=== PATIENT | male | born 1960 | race Caucasian/White ===

== ENCOUNTER 2022-11-14 11:29 | Emergency (ER) | payer BC ==
[2022-11-14 11:35] VITALS: BMI 36.0
[2022-11-14] MEDS ORDERED: IBUPROFEN 400 MG TABLET (FP) PO ONE ×2 (12:23→13:07)
[2022-11-14] MEDS ORDERED: ACETAMINOPHEN 325 MG TABLET (FP) PO ONE (12:23)
[2022-11-14] MEDS ORDERED: ACETAMINOPHEN 500 MG TABLET (FP) ONE (13:07)
[2022-11-14 13:50] VITALS: BP 159/89; PULSE 69; RESP 12; TEMP 98.3
== END 2022-11-14 13:52 | disposition home or self-care (01) ==
LOC: JERFT 11:29
DX: R07.81 Pleurodynia (principal); M79.641 Pain in right hand; W10.1XXA Fall (on)(from) sidewalk curb, initial encounter
CPT/HCPCS: 71046-TC-FY; 71101-TC-RT-FY; 73130-TC-RT-FY; 99284-25

== ENCOUNTER 2023-06-23 15:16 | Emergency (ER) | payer BC, OTHER ==
[2023-06-23 15:25] VITALS: BP 156/91; PULSE 76; RESP 18; TEMP 97.3; BMI 43.9
[2023-06-23] MEDS ORDERED: ACETAMINOPHEN INJECTION 100 ML IVPB ONE (16:58)
[2023-06-23] MEDS: ACETAMINOPHEN 1000 MG/100 ML BAG IVPB ONE (17:00)
[2023-06-23 17:07] LABS: BASO % 1.1 % (0-2.0); EOS % 1.6 % (0-4.5); HEMATOCRIT 40.1 % (35.4-49); HEMOGLOBIN 13.2 GM/dL (11.7-16.9); LYMPH % 43.3 % (8-40); MCH 29.4 pg (25.7-33.7); MCHC 32.8 g/dl (32.0-35.9); MEAN CELL VOLUME 89.6 fl (80-96); MEAN PLT VOLUME 7.2 fl (7.5-11.1); MONO % 8.1 % (3.8-10.2); NEUT % 45.9 % (42.8-82.8); PLATELET COUNT 346 10^3/uL (134-434); RBC 4.48 M/mm3 (4.00-5.60); RDW 14.5 % (11.9-15.9); WHITE BLOOD COUNT 5.3 K/mm3 (4.0-10.0)
[2023-06-23 17:08] LABS: POTASSIUM 4.3 mmol/L (3.5-5.1)
[2023-06-23 17:10] LABS: ALBUMIN 3.7 g/dl (3.4-5.0); BLOOD UREA NITROGEN 16.1 mg/dL (7-18); CALCIUM 9.7 mg/dL (8.5-10.1)
[2023-06-23 17:12] LABS: INR 0.96 (0.83-1.09); PROTHROMBIN TIME (PATIENT) 11.1 SEC (9.7-13.0)
[2023-06-23 17:15] LABS: ACTIVATED PTT 28.3 SECONDS (25.2-36.5); BILIRUBIN,TOTAL 0.4 mg/dL (0.2-1)
== END 2023-06-23 20:01 | disposition home or self-care (01) ==
LOC: JER 15:16
PROC: 3E030NZ Introduction of Analgesics, Hypnotics, Sedatives into Peripheral Vein, Open Approach (ICD-10-PCS; principal; 2023-06-23)
DX: M79.89 Other specified soft tissue disorders (principal); M79.662 Pain in left lower leg
CPT/HCPCS: 36415; 80053; 85025; 85610; 85730; 93971-TC; 99284-25; J0131